=== PATIENT | female | born 1955 | race Hispanic/Latino ===

== ENCOUNTER 2023-07-26 16:32 | Emergency (ER) | payer OTHER ==
--- NOTE | 2023-07-26 17:15 | ER ---
Nurse's Notes [facility] Name: Chiquis Hill Age: 68 yrs Sex: Female : 1955 Arrival Date: 07/26/2023 Time: 16:32 Bed 8 Private MD: Diagnosis: acute thrombus right popliteal vein Presentation: 07/25 16:56 Chief complaint: Patient states: "I just did an ultrasound and they said I have a blood aa5 clot on my right leg". Pt reports slight pain to right leg, denies SOB. 16:56 Acuity: OZZY 3 aa5 16:56 Method Of Arrival: Ambulatory aa5 16:56 Coronavirus screen: At this time, the client does not indicate any symptoms associated aa5 with coronavirus-19. Ebola Screen: Patient denies travel to an Ebola-affected area in the 21 days before illness onset. Initial Sepsis Screen: Does the patient meet any 2 criteria? No. Patient's initial sepsis screen is negative. Does the patient have a suspected source of infection? No. Patient's initial sepsis screen is negative. Risk Assessment: Do you want to hurt yourself or someone else? Patient reports no desire to harm self or others. Onset of symptoms was July 2023. 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 - Infectious Disease History:: Denies. - Social history:: Smoking status: Patient denies any tobacco usage or history of. Screenin:43 [facility] ED Fall Risk Assessment (Adult) History of falling in the last 3 months, ld1 including since admission No falls in past 3 months (0 pts). Abuse screen: Denies threats or abuse. Denies injuries from another. Nutritional screening: No deficits noted. Tuberculosis screening: No symptoms or risk factors identified. Assessment: 17:43 General: Appears in no apparent distress. comfortable, Behavior is calm, cooperative, ld1 appropriate for age. Pain: Denies pain. Neuro: Level of Consciousness is awake, alert, obeys commands, Oriented to person, place, time, situation. Cardiovascular: Capillary refill < 3 seconds Patient's skin is warm and dry. Respiratory: Airway is patent Respiratory effort is even, unlabored. GI: Abdomen is round non-distended. : No signs and/or symptoms were reported regarding the genitourinary system. EENT: No signs and/or symptoms were reported regarding the EENT system. Derm: No signs and/or symptoms reported regarding the dermatologic system. Musculoskeletal: No signs and/or symptoms reported regarding the musculoskeletal system. 17:50 Reassessment: Patient appears in no apparent distress at this time. No changes from ld1 previously documented assessment. Patient and/or family updated on plan of care and expected duration. Pain level reassessed. Patient is alert, oriented x 3, equal unlabored respirations, skin warm/dry/pink. Vital Signs: 16:56 BP 160 / 86; Pulse 91; Resp 18 S; Temp 98.1(TE); Pulse Ox 97% on R/A; Weight 77.11 kg aa5 (R); Height 5 ft. 1 in. (R); 17:43 BP 152 / 79; Pulse 84; Resp 18; Pulse Ox 99% on R/A; ld1 16:56 Body Mass Index 32.12 (77.11 kg, 154.94 cm) aa5 ED Course: 16:39 Patient arrived in ED. mg5 16:56 Arm band placed on. aa5 16:58 Triage completed. aa5 16:59 [facility] sb4 16:59 Dereck Ziegler MD is Attending Physician. sb4 17:14 Geneva Evans, STEPHANIE is Primary Nurse. ld1 17:43 Patient has correct armband on for positive identification. Placed in gown. Bed in low ld1 position. Call light in reach. Side rails up X2. teletypesetter monitor on. Pulse ox on. NIBP on. Door closed. Noise minimized. Warm blanket given. 17:43 No provider procedures requiring assistance completed. ld1 17:43 Patient did not have IV access during this emergency room visit. ld1 Administered Medications: 17:43 Drug: Xarelto PO 15 mg PO once Route: PO; ld1 Medication: 17:43 VIS not applicable for this client. ld1 Outcome: 17:15 Discharge ordered by . sb4 17:44 Discharged to home ambulatory, ld1 17:44 Condition: stable 17:44 Discharge instructions given to patient, Instructed on discharge instructions, follow up and referral plans. medication usage, Demonstrated understanding of instructions, follow-up care, medications, Prescriptions given X 1, 17:50 Patient left the ED. ld1 Signatures: Zenobia Xie RN RN aa5 Geneva Evans RN RN ld1 Kaylyn Barnes, PA-C PALizetteC sb4 Desiree Murguia mg5
--- NOTE | 2023-07-26 17:15 | EDPHYS ---
Physician Documentation [facility] Name: Chiquis Hill Age: 68 yrs Sex: Female : 1955 Arrival Date: 07/26/2023 Time: 16:32 Bed 8 Private MD: ED Physician Dereck Ziegler HPI: 07/25 17:36 This 68 yrs old Female presents to ER via Ambulatory with complaints of DVT. sb4 17:36 Patient reports pain in the back of her right knee for quite some time now. She states sb4 that when she first had an ultrasound 2 years ago, they told her it was a cyst. She states that her pain has persisted and she had repeat imaging done today of both of her legs and was told she had a clot and to come to the ED. She denies any chest pain, shortness of breath, palpitations, redness. 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 - Infectious Disease History:: Denies. - Social history:: Smoking status: Patient denies any tobacco usage or history of. ROS: 17:36 Constitutional: Negative for fever, chills, and weight loss, sb4 17:36 MS/extremity: Positive for pain, of the right leg, 17:36 All other systems are negative, Exam: 17:36 Constitutional: This is a well developed, well nourished patient who is awake, alert, sb4 and in no acute distress. Head/Face: Normocephalic, atraumatic. Eyes: Extra-ocular motions intact. Periorbital areas with no swelling, redness, or edema. ENT: Mucous membranes moist. Cardiovascular: Regular rate and rhythm with a normal S1 and S2. Respiratory: Lungs have equal breath sounds bilaterally, clear to auscultation and percussion. No rales, rhonchi or wheezes noted. No increased work of breathing, no retractions or nasal flaring. Abdomen/GI: Soft, non-tender, no distension. Skin: Warm, dry with normal turgor. Normal color with no rashes, no lesions, and no evidence of cellulitis. Neuro: Awake and alert, GCS 15, oriented to person, place, time, and situation. Motor strength 5/5 in all extremities. Sensory grossly intact. 17:36 Musculoskeletal/extremity: DVT Exam: no swelling, negative Homans' sign noted on exam, no appreciated bluish discoloration, no erythema, no increased warmth, pain, tenderness, Vital Signs: 16:56 BP 160 / 86; Pulse 91; Resp 18 S; Temp 98.1(TE); Pulse Ox 97% on R/A; Weight 77.11 kg aa5 (R); Height 5 ft. 1 in. (R); 17:43 BP 152 / 79; Pulse 84; Resp 18; Pulse Ox 99% on R/A; ld1 16:56 Body Mass Index 32.12 (77.11 kg, 154.94 cm) aa5 MDM: 16:59 Patient medically screened. sb4 17:36 Differential diagnosis:. Data reviewed: vital signs, nurses notes, and as a result, I sb4 will discharge patient. Test considered but Not performed: Other Details labs at [facility] chest not necessary, patient is not hypoxic, tachypneic, or short of breath. low suspicion for PE. treatment would be same even if she did have a PE. Counseling: I had a detailed discussion with the patient and/or guardian regarding the historical points, exam findings, and any diagnostic results supporting the discharge/admit diagnosis, radiology results, to return to the emergency department if symptoms worsen or persist or if there are any questions or concerns that arise at home. Administered Medications: 17:43 Drug: Xarelto PO 15 mg PO once Route: PO; ld1 Disposition Summary: 07/26/23 17:15 Discharge Ordered Notes: Location: Home sb4 Problem: an ongoing problem sb4 Symptoms: are unchanged sb4 Condition: Stable sb4 Diagnosis - acute thrombus right popliteal vein sb4 Followup: sb4 - With: Emergency Department - When: As needed - Reason: Trouble breathing, Worsening of condition Discharge Instructions: - Discharge Summary Sheet sb4 - Deep Vein Thrombosis sb4 Forms: - Thank You Letter sb4 - Patient Portal Instructions sb4 - Leadership Thank You Letter sb4 Prescriptions: - Xarelto DVT-PE Treat 30d Start 15 mg (42)- 20 mg (9) Oral Tablet, Dose Pack - take 15 milligram ORAL route as directed on starter pack take one-15 mg tablet sb4 twice daily for 21 days, then one-20 mg tablet once daily; must take with meal/food; 1 Pack; Refills: 0, Product Selection Permitted Signatures: Zenobia Xie, RN RN aa5 Geneva Evans RN RN ld1 Kaylyn Barnes, PACharmaine PACharmaine sb4
[2023-07-26] MEDS ORDERED: RIVAROXABAN 20 MG TABLET PO ONE (17:37)
[2023-07-27 04:50] VITALS: BP 152/79; TEMP 98.1; O2SAT 99
== END 2023-07-26 17:50 | disposition home or self-care (01) ==
LOC: ER 16:32
DX: I82.431 Acute embolism and thrombosis of right popliteal vein (principal); Z88.8 Allergy status to other drugs, medicaments and biological substances
CPT/HCPCS: 99284